=== PATIENT | male | born 1990 | race Caucasian/White ===

== ENCOUNTER 2017-12-02 10:41 | Emergency (ER) | payer SELFPAY ==
[~2017-12-02] VITALS: Ht 182.9 cm; Wt 104.3 kg
[2017-12-02 10:49] VITALS: BP 122/87
[2017-12-02] MEDS ORDERED: IBUPROFEN 800 MG TAB PO ONE (12:00)
== END 2017-12-02 12:32 | disposition home or self-care (01) ==
LOC: ER 10:41
DX: S60.221A Contusion of right hand, initial encounter (principal); W19.XXXA Unspecified fall, initial encounter; Y93.89 Activity, other specified; Y99.8 Other external cause status; Y92.89 Other specified places as the place of occurrence of the external cause
CPT/HCPCS: 73130